=== PATIENT | female | born 1940 | race Caucasian/White ===

== ENCOUNTER 2017-04-13 08:07 | Day surgery (SDC) | payer OTHER, BC ==
[2017-04-13] MEDS ORDERED: D5 LR 1000 ML 1,000 ML IV ONE (08:31)
[2017-04-13] MEDS ORDERED: DIPRIVAN VIAL 20 ML ONE (10:22)
[2017-04-13 11:13] VITALS: BP 140/70
== END 2017-04-13 11:05 | disposition home or self-care (01) ==
LOC: SURG1 08:07
PROVIDERS: ATTEND Internal Medicine Gastroenterology
PROC: 0DJD8ZZ Inspection of Lower Intestinal Tract, Via Natural or Artificial Opening Endoscopic (ICD-10-PCS; principal; 2017-04-13 07:30)
PROC: 0DBE8ZX Excision of Large Intestine, Via Natural or Artificial Opening Endoscopic, Diagnostic (ICD-10-PCS; principal; 2017-04-13 07:30)
DX: Z12.11 Encounter for screening for malignant neoplasm of colon (principal); R10.31 Right lower quadrant pain; R19.4 Change in bowel habit; K64.0 First degree hemorrhoids
CPT/HCPCS: 99100; A4217; J3490; J7120